=== PATIENT | female | born 1970 | race Caucasian/White ===

== ENCOUNTER 2017-11-19 17:17 | Inpatient (IN) | payer MEDICAID ==
[~2017-11-19] VITALS: Ht 149.9 cm; Wt 30.0 kg
[2017-11-19] MEDS ORDERED: QUET200T PO (17:29)
[2017-11-19] MEDS ORDERED: VENL150C2 PO (17:29)
[2017-11-19 19:00] LABS: AMPHET/METH SCREEN,URINE NEGATIVE (NEGATIVE); BARBITURATE SCREEN, URINE NEGATIVE (NEGATIVE); BENZODIAZEPINES SCREEN,URINE NEGATIVE (NEGATIVE); CANNABINOID SCREEN,URINE NEGATIVE (NEGATIVE); COCAINE SCREEN,URINE NEGATIVE (NEGATIVE); METHADONE SCREEN, URINE NEGATIVE (NEGATIVE); OPIATE SCREEN,URINE NEGATIVE (NEGATIVE); PHENCYCLIDINE SCREEN,URINE NEGATIVE (NEGATIVE)
[2017-11-19] MEDS ORDERED: LORazepam 2 MG TABLET PO PRN (19:30)
[2017-11-19] MEDS ORDERED: HALOPERIDOL 5 MG TABLET PO PRN (19:30)
[2017-11-19] MEDS ORDERED: ACETAMINOPHEN 325 MG TABLET PO PRN (22:15)
[2017-11-19] MEDS: IBUPROFEN 600 MG TABLET PO PRN (22:33)
[2017-11-20 01:59] VITALS: BP 103/62
[2017-11-20 08:43] VITALS: BP 103/60
[2017-11-20] MEDS: BACITRACIN 28.4 GM OINTMENT TP SCH (09:14)
[2017-11-20 09:22] LABS: HEMOGLOBIN A1C 5.5 % (4.5-6.2)
[2017-11-20 09:33] LABS: BASOPHILS % (AUTO) 0.4 % (0.0-2.0); EOSINOPHILS % (AUTO) 1.5 % (1.0-6.0); HEMOGLOBIN 11.6 g/dL (12.0-16.0); LYMPHOCYTES # (AUTO) 2.2 K/uL (1.0-4.8); LYMPHOCYTES % (AUTO) 41.7 % (22.0-44.0); MEAN CORPUSCULAR HEMOGLOBIN 27.7 pg (26.0-34.0); MEAN CORPUSCULAR HGB CONC 33.2 G/dL (31.0-37.0); MEAN CORPUSCULAR VOLUME 83 fL (80-100); MONOCYTES # (AUTO) 0.5 K/uL (0.1-1.0); MONOCYTES % (AUTO) 8.7 % (2.0-9.0); NEUTROPHILS # (AUTO) 2.5 K/uL (1.8-7.7); NEUTROPHILS % (AUTO) 47.7 % (40.0-70.0); PLATELET COUNT (AUTO) 231 K/uL (150-450); RED CELL DISTRIBUTION WIDTH 15.2 % (11.5-14.5)
[2017-11-20 09:46] LABS: ALANINE AMINOTRANSFERASE 18 U/L (12-78); ALBUMIN 3.2 g/dL (3.4-5.0); ALKALINE PHOSPHATASE 137 U/L (46-116); ANION GAP 7 mmol/L (8-16); ASPARTATE AMINOTRANSFERASE 14 U/L (15-37); BILIRUBIN,TOTAL 0.2 mg/dL (0.1-1.0); CALCIUM, TOTAL 8.4 mg/dL (8.8-10.5); CARBON DIOXIDE 28 mmol/L (22-29); CHLORIDE 105 mmol/L (98-107); CHOL/HDL RATIO 2.6 (3.9-5.7); CHOLESTEROL 204 mg/dL (131-200); CREATININE 0.69 mg/dL (0.60-1.30); FREE T4 (FREE THYROXINE) 0.81 ng/dL (0.76-1.46); GLOMERULAR FILTR. RATE CALC > 60 mL/min (>60); GLUCOSE,RANDOM 86 mg/dL (70-110); HDL CHOLESTEROL 79 mg/dL (40-60); LDL CHOL (CALC.) 109 mg/dL (0-130); POTASSIUM 3.7 mmol/L (3.5-5.1); SODIUM SERUM 140 mmol/L (136-145); THYROID STIMULATING HORMONE 1.18 uIU/mL (0.36-3.74); TOTAL PROTEIN, SERUM 6.9 g/dL (6.4-8.2); TRIGLYCERIDES 79 mg/dL (15-150); UREA NITROGEN, BLOOD 10 mg/dL (7-18)
[2017-11-20] MEDS: VENLAFAXINE HCL 75 MG ER CAPSULE PO SCH (12:34)
[2017-11-20 16:35] VITALS: BP 106/67
[2017-11-20] MEDS: ZOLPIDEM TARTRATE 10 MG TABLET PO PRN (21:09)
[2017-11-21 00:05] VITALS: BP 107/63
[2017-11-21 08:26] VITALS: BP 110/71
[2017-11-21] MEDS: BACITRACIN 28.4 GM OINTMENT TP SCH (09:40)
[2017-11-21] MEDS: VENLAFAXINE HCL 75 MG ER CAPSULE PO SCH (09:40)
[2017-11-21 15:05] VITALS: BP 115/79
[2017-11-21] MEDS: IBUPROFEN 600 MG TABLET PO PRN ×2 (15:09→21:22)
[2017-11-21 16:00] VITALS: BP 106/70
[2017-11-21 21:22] VITALS: BP 110/76
[2017-11-21] MEDS: ZOLPIDEM TARTRATE 10 MG TABLET PO PRN (21:22)
[2017-11-22 07:23] VITALS: BP 120/86
[2017-11-22 08:53] VITALS: BP 108/69
[2017-11-22] MEDS: VENLAFAXINE HCL 75 MG ER CAPSULE PO SCH (09:32)
[2017-11-22] MEDS: BACITRACIN 28.4 GM OINTMENT TP SCH (09:33)
[2017-11-22] MEDS ORDERED: DOCUSATE SODIUM 250 MG CAPSULE PO SCH (10:00)
[2017-11-22] MEDS ORDERED: BISACODYL 5 MG EC TABLET PO PRN (10:00)
[2017-11-22] MEDS ORDERED: DOCU250C91 PO (10:16)
== END 2017-11-22 13:15 | disposition home or self-care (01) | DRG 751 ==
LOC: EMS 17:19 → B2S 19:48
PROVIDERS: ADMIT Psychiatry & Neurology Child & Adolescent Psychiatry; ATTEND Psychiatry & Neurology Child & Adolescent Psychiatry
DX: F33.2 Major depressive disorder, recurrent severe without psychotic features (principal); R45.851 Suicidal ideations; F41.9 Anxiety disorder, unspecified; S91.112A Laceration without foreign body of left great toe without damage to nail, initial encounter; X58.XXXA Exposure to other specified factors, initial encounter; Z80.0 Family history of malignant neoplasm of digestive organs; Z91.5 Personal history of self-harm; Z79.899 Other long term (current) drug therapy; Y93.89 Activity, other specified; Y92.89 Other specified places as the place of occurrence of the external cause; Y99.8 Other external cause status
CPT/HCPCS: 83036; 84439; 84443; 99285

== ENCOUNTER 2020-06-22 16:17 | Inpatient (IN) | payer MEDICAID ==
[~2020-06-22] VITALS: Ht 157.5 cm; Wt 46.3 kg
[~2020-06-22 16:17] MED LIST: DOCU-350 PO; VENL150C2 PO
[2020-06-22] MEDS ORDERED: HALOPERIDOL 5 MG TABLET PO PRN (18:15)
[2020-06-22] MEDS ORDERED: CARI3CAP PO (21:08)
[2020-06-22] MEDS ORDERED: TRAZ-252 PO (21:08)
[2020-06-22] MEDS ORDERED: DIVA-80 PO (21:08)
[2020-06-22] MEDS ORDERED: HYDR-4031 PO (21:08)
[2020-06-22] MEDS ORDERED: VENL-67 PO (21:08)
[2020-06-23] MEDS: ZOLPIDEM TARTRATE 10 MG TABLET PO PRN (00:24)
[2020-06-23] MEDS: LORazepam 1 MG TABLET PO PRN (00:24)
[2020-06-23 06:17] VITALS: BP 102/64
[2020-06-23] MEDS ORDERED: GuaiFENesin/D-METHORPHAN [SUGAR-FREE] 200-20MG/10 ML SYRUP UDCUP PO PRN (07:00)
[2020-06-23] MEDS ORDERED: ALBUTEROL SULFATE HFA 90 MCG/PUFF 8 GM INHALER IH PRN (07:00)
[2020-06-23] MEDS ORDERED: MAGNESIUM HYDROXIDE SUSPENSION 30 ML UDCUP PO PRN (07:00)
[2020-06-23] MEDS ORDERED: ACETAMINOPHEN 325 MG TABLET PO PRN (07:00)
[2020-06-23] MEDS ORDERED: DOCUSATE SODIUM 100 MG CAPSULE PO PRN (07:00)
[2020-06-23] MEDS ORDERED: LOPERAMIDE HCL 2 MG CAPSULE PO PRN (07:00)
[2020-06-23] MEDS ORDERED: CloNIDine HCL 0.1 MG TABLET PO PRN (07:00)
[2020-06-23] MEDS ORDERED: PETROLATUM,WHITE 28 GM JELLY TP PRN (07:00)
[2020-06-23] MEDS ORDERED: IBUPROFEN 400 MG TABLET PO PRN (07:00)
[2020-06-23] MEDS ORDERED: ONDANSETRON HCL 4 MG TABLET PO PRN (07:00)
[2020-06-23] MEDS ORDERED: MAG HYDROX/AL HYDROX/SIMETH ES 30 ML SUSPENSION UDCUP PO PRN (07:00)
[2020-06-23] MEDS ORDERED: NICOTINE 14 MG/24 HOUR PATCH TD PRN (07:00)
[2020-06-23 08:10] VITALS: BP 107/64
[2020-06-23 08:41] LABS: BASOPHILS % (AUTO) 0.6 % (0.0-2.0); EOSINOPHILS % (AUTO) 0.5 % (1.0-6.0); HEMOGLOBIN 11.3 g/dL (12.0-16.0); LYMPHOCYTES # (AUTO) 1.8 K/uL (1.0-4.8); MEAN CORPUSCULAR HEMOGLOBIN 27.7 pg (26.0-34.0); MEAN CORPUSCULAR HGB CONC 33.2 G/dL (31.0-37.0); MEAN CORPUSCULAR VOLUME 83 fL (80-100); MONOCYTES # (AUTO) 0.4 K/uL (0.1-1.0); NEUTROPHILS # (AUTO) 2.8 K/uL (1.8-7.7); NEUTROPHILS % (AUTO) 55.9 % (40.0-70.0); PLATELET COUNT (AUTO) 175 K/uL (150-450); RED BLOOD CELL COUNT(AUTO) 4.09 MIL/uL (4.00-5.20); RED CELL DISTRIBUTION WIDTH 18.3 % (11.5-14.5)
[2020-06-23 09:53] LABS: ALANINE AMINOTRANSFERASE 13 U/L (12-78); ALBUMIN 3.3 g/dL (3.4-5.0); ALKALINE PHOSPHATASE 89 U/L (46-116); ANION GAP 7 mmol/L (8-16); ASPARTATE AMINOTRANSFERASE 10 U/L (15-37); BILIRUBIN,TOTAL 0.3 mg/dL (0.1-1.0); CALCIUM, TOTAL 8.7 mg/dL (8.8-10.5); CARBON DIOXIDE 27 mmol/L (22-29); CHLORIDE 105 mmol/L (98-107); CHOL/HDL RATIO 2.3 (3.9-5.7); CHOLESTEROL 196 mg/dL (131-200); CREATININE 0.56 mg/dL (0.60-1.30); FREE T4 (FREE THYROXINE) 1.13 ng/dL (0.76-1.46); GLOMERULAR FILTR. RATE CALC > 60 mL/min (>60); GLUCOSE,RANDOM 83 mg/dL (70-110); HCG,QUANTITATIVE 1 mIU/mL (0-6); HDL CHOLESTEROL 86 mg/dL (40-60); LDL CHOL (CALC.) 97 mg/dL (0-130); SODIUM SERUM 139 mmol/L (136-145); TOTAL PROTEIN, SERUM 6.6 g/dL (6.4-8.2); TRIGLYCERIDES 65 mg/dL (15-150); UREA NITROGEN, BLOOD 8 mg/dL (7-18)
[2020-06-23] MEDS: OMEPRAZOLE 20 MG CAPSULE PO SCH (12:28)
[2020-06-23 16:02] VITALS: BP 109/68
[2020-06-23] MEDS: DIVALPROEX SODIUM 500 MG ER TABLET PO SCH (16:08)
[2020-06-23] MEDS: TraZODone HCL 100 MG TABLET PO SCH (20:24)
[2020-06-23 23:48] VITALS: BP 11/73
[2020-06-24 00:15] VITALS: BP 111/73
[2020-06-24] MEDS: LORazepam 1 MG TABLET PO PRN ×2 (00:22→17:29)
[2020-06-24] MEDS: ZOLPIDEM TARTRATE 10 MG TABLET PO PRN (00:22)
[2020-06-24] MEDS ORDERED: INFLUENZA VIRUS VACCINE QVS 2020-21 (6MO+)/PF 60 MCG/0.5 ML SYRINGE IM ONE (02:00)
[2020-06-24 08:08] VITALS: BP 105/60
[2020-06-24] MEDS: VENLAFAXINE HCL 75 MG ER CAPSULE PO SCH (08:30)
[2020-06-24] MEDS: DIVALPROEX SODIUM 500 MG ER TABLET PO SCH ×2 (08:30→16:12)
[2020-06-24] MEDS: OMEPRAZOLE 20 MG CAPSULE PO SCH (08:30)
[2020-06-24 17:53] VITALS: BP 107/67
[2020-06-24] MEDS: TraZODone HCL 100 MG TABLET PO SCH (20:48)
[2020-06-25 00:26] VITALS: BP 102/65
[2020-06-25] MEDS: DIVALPROEX SODIUM 500 MG ER TABLET PO SCH ×2 (08:06→16:50)
[2020-06-25] MEDS: OMEPRAZOLE 20 MG CAPSULE PO SCH (08:06)
[2020-06-25] MEDS: VENLAFAXINE HCL 75 MG ER CAPSULE PO SCH (08:06)
[2020-06-25 08:13] VITALS: BP 106/68
[2020-06-25 16:06] VITALS: BP 117/80
[2020-06-25] MEDS: LORazepam 1 MG TABLET PO PRN ×2 (17:01→19:57)
[2020-06-25 20:02] VITALS: BP 109/69
[2020-06-25] MEDS: TraZODone HCL 100 MG TABLET PO SCH (20:56)
[2020-06-26 00:39] VITALS: BP 94/60
[2020-06-26 08:16] VITALS: BP 107/62
[2020-06-26] MEDS: FOLIC ACID 1 MG TABLET PO SCH (09:15)
[2020-06-26] MEDS: MULTIVITAMINS WITH MINERALS, THERAPEUTIC TABLET PO SCH (09:15)
[2020-06-26] MEDS: THIAMINE 100 MG TABLET PO SCH (09:15)
[2020-06-26] MEDS: OMEPRAZOLE 20 MG CAPSULE PO SCH (09:15)
[2020-06-26] MEDS: VENLAFAXINE HCL 75 MG ER CAPSULE PO SCH (09:15)
[2020-06-26] MEDS: DIVALPROEX SODIUM 500 MG ER TABLET PO SCH ×2 (09:15→16:28)
[2020-06-26] MEDS ORDERED: BENZOCAINE/MENTHOL LOZENGE PO PRN (12:15)
[2020-06-26 16:02] VITALS: BP 108/68
[2020-06-26] MEDS: FERROUS SULFATE 325 MG EC TABLET PO SCH (16:28)
[2020-06-26] MEDS: LORazepam 1 MG TABLET PO PRN (18:37)
[2020-06-26] MEDS: ZOLPIDEM TARTRATE 10 MG TABLET PO PRN (20:24)
[2020-06-26] MEDS: TraZODone HCL 100 MG TABLET PO SCH (20:24)
[2020-06-27 00:35] VITALS: BP 103/62
[2020-06-27] MEDS: FERROUS SULFATE 325 MG EC TABLET PO SCH ×2 (06:45→17:13)
[2020-06-27] MEDS: VENLAFAXINE HCL 75 MG ER CAPSULE PO SCH (08:52)
[2020-06-27] MEDS: OMEPRAZOLE 20 MG CAPSULE PO SCH (08:52)
[2020-06-27] MEDS: MULTIVITAMINS WITH MINERALS, THERAPEUTIC TABLET PO SCH (08:53)
[2020-06-27] MEDS: DIVALPROEX SODIUM 500 MG ER TABLET PO SCH ×2 (08:53→17:13)
[2020-06-27] MEDS: FOLIC ACID 1 MG TABLET PO SCH (08:53)
[2020-06-27] MEDS: THIAMINE 100 MG TABLET PO SCH (08:53)
[2020-06-27 12:51] VITALS: BP 114/82
[2020-06-27] MEDS: LORazepam 1 MG TABLET PO PRN (16:03)
[2020-06-27 16:04] VITALS: BP 105/70
[2020-06-27] MEDS: TraZODone HCL 100 MG TABLET PO SCH (20:10)
[2020-06-27] MEDS: RisperiDONE 1 MG TABLET PO SCH (20:11)
[2020-06-27] MEDS: ZOLPIDEM TARTRATE 10 MG TABLET PO PRN (20:22)
[2020-06-28 06:20] VITALS: BP 108/76
[2020-06-28] MEDS: FERROUS SULFATE 325 MG EC TABLET PO SCH ×2 (06:53→17:00)
[2020-06-28 08:12] VITALS: BP 110/78
[2020-06-28] MEDS: VENLAFAXINE HCL 75 MG ER CAPSULE PO SCH (09:32)
[2020-06-28] MEDS: DIVALPROEX SODIUM 500 MG ER TABLET PO SCH ×2 (09:32→16:13)
[2020-06-28] MEDS: MULTIVITAMINS WITH MINERALS, THERAPEUTIC TABLET PO SCH (09:33)
[2020-06-28] MEDS: OMEPRAZOLE 20 MG CAPSULE PO SCH (09:34)
[2020-06-28] MEDS: FOLIC ACID 1 MG TABLET PO SCH (09:34)
[2020-06-28] MEDS: THIAMINE 100 MG TABLET PO SCH (09:34)
[2020-06-28 09:36] LABS: COVID AG,FIA SOURCE NASOPHARYNGEAL
[2020-06-28 16:04] VITALS: BP 121/78
[2020-06-28] MEDS: LORazepam 1 MG TABLET PO PRN (16:18)
[2020-06-28] MEDS: ZOLPIDEM TARTRATE 10 MG TABLET PO PRN (20:59)
[2020-06-28] MEDS: TraZODone HCL 100 MG TABLET PO SCH (20:59)
[2020-06-28] MEDS: RisperiDONE 1 MG TABLET PO SCH (20:59)
[2020-06-28 21:33] VITALS: BP 101/74
[2020-06-29 06:04] VITALS: BP 106/70
[2020-06-29] MEDS: FERROUS SULFATE 325 MG EC TABLET PO SCH ×2 (07:00→17:09)
[2020-06-29] MEDS: FOLIC ACID 1 MG TABLET PO SCH (09:36)
[2020-06-29] MEDS: MULTIVITAMINS WITH MINERALS, THERAPEUTIC TABLET PO SCH (09:36)
[2020-06-29] MEDS: THIAMINE 100 MG TABLET PO SCH (09:36)
[2020-06-29] MEDS: DIVALPROEX SODIUM 500 MG ER TABLET PO SCH ×2 (09:36→17:09)
[2020-06-29] MEDS: VENLAFAXINE HCL 75 MG ER CAPSULE PO SCH (09:37)
[2020-06-29] MEDS: OMEPRAZOLE 20 MG CAPSULE PO SCH (09:37)
[2020-06-29 10:57] VITALS: BP 100/66
[2020-06-29 17:42] VITALS: BP 101/71
[2020-06-29] MEDS: TraZODone HCL 100 MG TABLET PO SCH (21:09)
[2020-06-29] MEDS: RisperiDONE 1 MG TABLET PO SCH (21:09)
[2020-06-30] MEDS: FERROUS SULFATE 325 MG EC TABLET PO SCH ×2 (06:25→16:59)
[2020-06-30 06:43] VITALS: BP 96/61
[2020-06-30 08:09] VITALS: BP 103/73
[2020-06-30] MEDS: MULTIVITAMINS WITH MINERALS, THERAPEUTIC TABLET PO SCH (08:34)
[2020-06-30] MEDS: FOLIC ACID 1 MG TABLET PO SCH (08:34)
[2020-06-30] MEDS: OMEPRAZOLE 20 MG CAPSULE PO SCH (08:34)
[2020-06-30] MEDS: DIVALPROEX SODIUM 500 MG ER TABLET PO SCH ×2 (08:34→16:59)
[2020-06-30] MEDS: THIAMINE 100 MG TABLET PO SCH (08:34)
[2020-06-30] MEDS: VENLAFAXINE HCL 75 MG ER CAPSULE PO SCH (08:34)
[2020-06-30 16:10] VITALS: BP 105/65
[2020-06-30] MEDS: RisperiDONE 1 MG TABLET PO SCH (20:37)
[2020-06-30] MEDS: TraZODone HCL 100 MG TABLET PO SCH (20:37)
[2020-07-01 00:17] VITALS: BP 103/62
[2020-07-01] MEDS: FERROUS SULFATE 325 MG EC TABLET PO SCH ×2 (07:14→17:22)
[2020-07-01 08:47] VITALS: BP 106/66
[2020-07-01] MEDS: VENLAFAXINE HCL 75 MG ER CAPSULE PO SCH (09:54)
[2020-07-01] MEDS: FOLIC ACID 1 MG TABLET PO SCH (09:54)
[2020-07-01] MEDS: DIVALPROEX SODIUM 500 MG ER TABLET PO SCH ×2 (09:54→17:22)
[2020-07-01] MEDS: OMEPRAZOLE 20 MG CAPSULE PO SCH (09:54)
[2020-07-01] MEDS: THIAMINE 100 MG TABLET PO SCH (09:54)
[2020-07-01] MEDS: MULTIVITAMINS WITH MINERALS, THERAPEUTIC TABLET PO SCH (09:54)
[2020-07-01 17:52] VITALS: BP 101/74
[2020-07-01] MEDS: RisperiDONE 1 MG TABLET PO SCH (20:28)
[2020-07-01] MEDS: TraZODone HCL 100 MG TABLET PO SCH (20:28)
[2020-07-02 00:26] VITALS: BP 111/77
[2020-07-02] MEDS: FERROUS SULFATE 325 MG EC TABLET PO SCH ×2 (07:00→17:00)
[2020-07-02 08:21] VITALS: BP 100/72
[2020-07-02] MEDS: OMEPRAZOLE 20 MG CAPSULE PO SCH (08:37)
[2020-07-02] MEDS: MULTIVITAMINS WITH MINERALS, THERAPEUTIC TABLET PO SCH (08:37)
[2020-07-02] MEDS: DIVALPROEX SODIUM 500 MG ER TABLET PO SCH ×2 (08:37→17:00)
[2020-07-02] MEDS: VENLAFAXINE HCL 75 MG ER CAPSULE PO SCH (08:37)
[2020-07-02] MEDS: FOLIC ACID 1 MG TABLET PO SCH (08:37)
[2020-07-02] MEDS: THIAMINE 100 MG TABLET PO SCH (08:37)
[2020-07-02 16:34] VITALS: BP 107/84
[2020-07-02] MEDS: RisperiDONE 1 MG TABLET PO SCH (20:16)
[2020-07-02] MEDS: TraZODone HCL 100 MG TABLET PO SCH (20:16)
[2020-07-03 00:32] VITALS: BP 113/81
[2020-07-03] MEDS: FERROUS SULFATE 325 MG EC TABLET PO SCH ×2 (06:56→16:28)
[2020-07-03 08:10] VITALS: BP 117/78
[2020-07-03] MEDS: DIVALPROEX SODIUM 500 MG ER TABLET PO SCH ×2 (09:53→16:28)
[2020-07-03] MEDS: THIAMINE 100 MG TABLET PO SCH (09:53)
[2020-07-03] MEDS: MULTIVITAMINS WITH MINERALS, THERAPEUTIC TABLET PO SCH (09:53)
[2020-07-03] MEDS: FOLIC ACID 1 MG TABLET PO SCH (09:53)
[2020-07-03] MEDS: OMEPRAZOLE 20 MG CAPSULE PO SCH (09:54)
[2020-07-03] MEDS: VENLAFAXINE HCL 75 MG ER CAPSULE PO SCH (09:54)
[2020-07-03 16:01] VITALS: BP 103/74
[2020-07-03] MEDS: RisperiDONE 1 MG TABLET PO SCH (20:26)
[2020-07-03] MEDS: TraZODone HCL 100 MG TABLET PO SCH (20:26)
[2020-07-04 05:21] VITALS: BP 104/60
[2020-07-04] MEDS: FERROUS SULFATE 325 MG EC TABLET PO SCH (06:56)
[2020-07-04 08:10] VITALS: BP 105/62
[2020-07-04] MEDS: VENLAFAXINE HCL 75 MG ER CAPSULE PO SCH (08:58)
[2020-07-04] MEDS: MULTIVITAMINS WITH MINERALS, THERAPEUTIC TABLET PO SCH (08:59)
[2020-07-04] MEDS: OMEPRAZOLE 20 MG CAPSULE PO SCH (08:59)
[2020-07-04] MEDS: DIVALPROEX SODIUM 500 MG ER TABLET PO SCH (08:59)
[2020-07-04] MEDS: FOLIC ACID 1 MG TABLET PO SCH (08:59)
[2020-07-04] MEDS: THIAMINE 100 MG TABLET PO SCH (09:00)
[2020-07-04] MEDS ORDERED: DIVA-80 PO (11:08)
[2020-07-04] MEDS ORDERED: RISP1TAB89 PO (11:09)
[2020-07-04] MEDS ORDERED: TRAZ-186 PO (11:09)
[2020-07-05 08:56] LABS: APPEARANCE,URINE TURBID (CLEAR); BILIRUBIN,URINE NEGATIVE (NEGATIVE); GLUCOSE, URINE (UA) NEGATIVE (NEGATIVE); KETONES,URINE 15 mg/dL (NEGATIVE); LEUKOCYTE ESTERASE ,URINE MODERATE (NEGATIVE); NITRATE,URINE NEGATIVE (NEGATIVE); OCCULT BLOOD,URINE NEGATIVE (NEGATIVE); PH,URINE 5.5 (5.0-8.0); PROTEIN,URINE NEGATIVE (NEGATIVE); UROBILINOGEN,URINE 0.2 mg/dL (<=1.0)
[2020-07-05 10:36] LABS: BACTERIA,URINE Many /HPF (None Seen); RBC,URINE None Seen /HPF (0-2)
== END 2020-07-04 13:00 | disposition home or self-care (01) | DRG 751 ==
LOC: B2S 18:16
PROVIDERS: ADMIT Psychiatry & Neurology Psychiatry; ATTEND Psychiatry & Neurology Psychiatry
DX: F33.3 Major depressive disorder, recurrent, severe with psychotic symptoms (principal); Z79.899 Other long term (current) drug therapy; D64.9 Anemia, unspecified; E83.51 Hypocalcemia; F19.10 Other psychoactive substance abuse, uncomplicated; Z91.5 Personal history of self-harm; R45.851 Suicidal ideations; Z20.828 Contact with and (suspected) exposure to other viral communicable diseases
CPT/HCPCS: 84439; 84443; 87086; 87426

== ENCOUNTER 2020-06-22 19:25 | Emergency (ER) | payer MEDICAID, OTHER ==
[~2020-06-22] VITALS: Ht 152.4 cm; Wt 0.5 kg
[2020-06-22] MEDS ORDERED: HYDR-4031 PO (21:08)
[2020-06-22] MEDS ORDERED: VENL-67 PO (21:08)
[2020-06-22] MEDS ORDERED: CARI3CAP PO (21:08)
[2020-06-22] MEDS ORDERED: DIVA-80 PO (21:08)
[2020-06-22] MEDS ORDERED: TRAZ-252 PO (21:08)
[2020-06-22 21:53] LABS: COVID AG,FIA SOURCE NASOPHARYNGEAL
[2020-06-22 23:27] VITALS: BP 120/70
== END 2020-06-22 23:36 | disposition home or self-care (01) ==
LOC: EMS 19:25
DX: F32.9 Major depressive disorder, single episode, unspecified (principal); Z20.828 Contact with and (suspected) exposure to other viral communicable diseases
CPT/HCPCS: 87426